=== PATIENT | male | born 1965 | race Caucasian/White ===

== ENCOUNTER 2018-09-11 18:18 | Emergency (ER) | payer OTHER, SELFPAY ==
[2018-09-11 18:30] VITALS: BP 152/92; PULSE 72; RESP 13; TEMP 36.1; O2SAT 100
[2018-09-11 18:36] LABS: Bacteria Urine None Seen; WBC Urine None Seen (0-5/HPF)
[2018-09-11 18:38] LABS: Appearance Urine UA CLEAR; Bilirubin Urine UA NEGATIVE (NEGATIVE); Color Urine UA YELLOW; Glucose Urine UA NEGATIVE (Negative); Ketones Urine UA 1+ (NEGATIVE); Leukocyte Esterase Urine UA NEGATIVE (NEGATIVE); Nitrite Urine UA NEGATIVE (Negative); Occult Blood Urine UA 3+ (Negative); Protein Urine UA TRACE (Negative); Specific Gravity Urine UA >=1.030 (1.000-1.035); Urobilinogen Urine UA 0.2 E.U./dL (0.2)
[2018-09-11 18:57] LABS: Culture Indicated Urine Cult Not Indicated; Mucus Urine 2+ (Negative); RBC Urine 10-30/HPF (0-5/HPF)
--- NOTE | 2018-09-11 19:44 | ED_ITS ---
HPI - Male Genitourinary General Chief complaint: Urogenital-Male Stated complaint: KIDNEY STONE Time Seen by Provider: 09/11/18 18:59 Source: patient and family Mode of arrival: ambulatory Limitations: no limitations History of Present Illness HPI Narrative: The patient complains of left flank pain, which he states feels like prior kidney stones. Patient has had multiple stones passed in the past, the last of which was about 1 year ago. States that is also his last time having a CT scan. Patient does note that he has had a lot of CTs over the course of his life, due to his urinary calculi. Patient denies vomiting. He states he has felt very slightly nauseated. He states the left flank pain started around 1800 tonight, and he came in here quickly, to try to avoid getting to the point of severe pain and vomiting. He states he took his year old Percocet at home, which does seem to have helped. He states the pain seems to come and go and is staying in his left CVA area. The patient denies fevers or dysuria. No gross hematuria. Patient states he is otherwise healthy. States his pain is an 8/10 at worst, and a 2/10 in between. States sitting up seems to make the pain worse, and standing up seems to make it better. Related Data Previous Rx's Medication Instructions Recorded hydrocodone-acetaminophen 1 tab PO Q4H PRN #14 tab 09/11/18 ondansetron 4 mg PO Q6-8H PRN #14 tab 09/11/18 tamsulosin [Flomax] 0.4 mg PO DAILY #10 cap 09/11/18 Allergies Allergy/AdvReac Type Severity Reaction Status Date / Time No Known Drug Allergies Allergy Verified 09/11/18 19:50 Review of Systems Constitutional Denies chills, Denies fever(s), Denies lethargy and Denies weakness Eyes Denies change in vision, Denies eye discharge, Denies irritation and Denies loss of vision ENT Ears, Nose, Mouth, and Throat: Denies change in voice, Denies neck pain and Denies sore throat Cardiovascular Denies chest pain, Denies irregular heart rhythm, Denies lightheadedness, Denies palpitations, Denies dyspnea, Denies dyspnea on exertion and Denies orthopnea Respiratory Denies cough, Denies dyspnea, Denies dyspnea on exertion and Denies wheezing Gastrointestinal Gastrointestinal: Denies abdominal pain, Denies change in bowel habits, Denies diarrhea, Denies nausea and Denies vomiting Genitourinary Denies hematuria, Denies flank pain, Denies urinary incontinence and Denies urinary urgency Musculoskeletal Reports back pain and Denies neck pain Integumentary/Breasts Denies pruritus, Denies erythema, Denies rash and Denies wounds Neurologic Denies confusion, Denies loss of vision and Denies weakness Psychiatric Denies anxiety, Denies confusion, Denies depression, Denies homicidal ideation and Denies suicidal ideation Endocrine Denies palpitations Hematologic/Lymphatic Denies easy bruising Allergic/Immunologic Denies wheezing PFSH Medical History Urinary calculi (Acute) Social History Smoking Status: Never smoker Social History Smoking Status: Never smoker Exam Initial Vital Signs Initial Vital Signs: Vital Signs Temperature 96.9 F L 09/11/18 18:30 Pulse Rate 72 09/11/18 18:30 Respiratory Rate 13 09/11/18 18:30 Blood Pressure 152/92 H 09/11/18 18:30 Pulse Oximetry 100 09/11/18 18:30 Const General: cooperative and well developed Nutritional Appearance: well nourished Orientation: alert, awake, oriented x3 and not confused [facility] Head: normocephalic and atraumatic Ears: external ears normal Nose: external nose normal and No nasal discharge Face and sinus: face symmetric and No dry mucous membranes Mouth: oral mucosae normal and moist mucous membranes Teeth and gingiva: dentition normal Eyes General: appearance normal, both eyes and all related structures Eyelids: eyelids normal Conjunctivae: conjunctivae normal Sclera: sclerae normal Pupils: PERRL EOM: EOM intact bilaterally Neck Neck: normal visual inspection, trachea midline, No lymphadenopathy, No midline deformity and No JVD Lymphatic: No lymphedema Chest Chest: normal inspection of the chest Resp Effort & Inspection: normal respiratory effort, able to speak in complete sentences, no respiratory distress and no use of accessory muscles Auscultation: clear to auscultation bilaterally, no rales, no rhonchi and no wheezes Cardio Rate: regular rate Rhythm: regular rhythm Heart Sounds: no click, no gallops, no murmurs and no rubs Pulses: normal peripheral pulses GI Inspection: non-distended Palpation: soft, no hepatosplenomegaly, No guarding, No pulsatile mass and No tender Back/Spine/Pelvis Back: No CVA tenderness Cervical Spine: cervical ROM normal and No pain with cervical ROM Thoracic/Lumbar Spine: thoracic and lumbar spine normal to inspection Skin General: no rashes or lesions noted, No jaundice and No petechiae Neuro General: alert, oriented x3, gait normal and no focal motor deficits Speech: speech normal Extrem General: full ROM, no clubbing, cyanosis or edema, no pedal edema and no calf tenderness Psych Appearance: well kempt Mental Status: mental status grossly normal Attitude: cooperative Thought Content: normal and suicidality Judgment: judgment good Course Course Narrative: I discussed with the patient the possibility of CT imaging, but the patient has had a lot of CTs over his life. We discussed that the patient could also be treated symptomatically, since he is familiar with how kidney stone feels, and this feels like his many stones before, and if the symptoms do not resolve over the course of the next week, or if they worsen, then the patient may revisit the idea of CT scan. Patient of prefer the latter option. As such, patient was treated symptomatically. We have discussed home management of symptoms, as well as the indications for return. Orders Ordered: Discontinued Medications Ketorolac Tromethamine (Toradol) 60 mg IM NOW ONE Stop: 09/11/18 19:40 Last Admin: 09/11/18 19:51 Dose: 60 mg Vital Signs - 8 hr 09/11/18 18:30 Temperature 96.9 F L Pulse Rate 72 Respiratory Rate 13 Blood Pressure 152/92 H Pulse Oximetry 100 MDM - Male Genitourinary Medical Records Attestation: I reviewed the patient's medical records. Lab Data Attestation: I reviewed the patient's lab results. Lab Results 09/11/18 Range/Units 18:30 Urine Color Yellow Urine Appearance Clear Urine pH 5.0 (4.5-8.0) Ur Specific [place] >=1.030 H (1.000-1.035) Urine Protein Trace H (Negative) Urine Glucose (UA) Negative (Negative) g/dL Urine Ketones 1+ H (NEGATIVE) Urine Occult Blood 3+ H (Negative) Urine Nitrate Negative (Negative) Urine Bilirubin Negative (NEGATIVE) Urine Urobilinogen 0.2 (0.2) E.U./dL Ur Leukocyte Esterase Negative (NEGATIVE) Urine RBC 10-30/hpf H (0-5/HPF) Urine WBC None seen (0-5/HPF) Urine Bacteria None seen (None) Urine Mucus 2+ H (Negative) Ur Culture Indicated? Cult not indicated Discharge Plan Departure Patient Disposition: Home Clinical Impression: Back pain, Urinary calculi Discharge Date/Time: 09/11/18 20:18 Interventions: ED Discharge Assessment Last Done: 09/11/18 20:18 Instructions: DI for Kidney Stones Prescriptions: New hydrocodone-acetaminophen 5-325 mg tablet 1 tab PO Q4H PRN (Reason: pain) Qty: 14 RF: 0 tamsulosin [Flomax] 0.4 mg capsule 0.4 mg PO DAILY Qty: 10 RF: 0 ondansetron 4 mg tablet,disintegrating 4 mg PO Q6-8H PRN (Reason: nausea and vomiting) Qty: 14 RF: 0 Referrals: [facility] [Provider Group]
[2018-09-11] MEDS: KETOROLAC 60 MG/2 ML VIAL IM (19:51)
[2018-09-11 20:18] VITALS: BP 132/87; PULSE 82; RESP 20; O2SAT 99
== END 2018-09-11 20:18 | disposition home or self-care (01) ==
PROVIDERS: Emergency Provider Emergency Medicine
DX: N20.9 Urinary calculus, unspecified (principal)
CPT/HCPCS: 81001; 96372; 99282; 99283; J1885